=== PATIENT | male | born 1980 | race Caucasian/White ===

== ENCOUNTER 2016-06-10 10:52 | Emergency (ER) | payer SELFPAY ==
[~2016-06-10] VITALS: Ht 180.3 cm; Wt 59.0 kg
[~2016-06-10 10:52] MED LIST: BACTRIM DS 8001 TA1 PO; CLEOCIN HCL300 MG PO; IBUPROFEN200 MG PO; LANTUS INS100 UNITS/ SC; LORTAB 5/500 501 TAB PO; NOMEDS; NOVOLOG FLEX100 U/ML SC; NYSTATIN SUSPEN60 ML PO
[2016-06-10 11:01] VITALS: BP 152/107
[2016-06-10] MEDS ORDERED: LISINOPRIL2.5 MG PO (11:07)
[2016-06-10] MEDS ORDERED: PENICILLIN VK250 MG PO (11:25)
--- NOTE | 2016-06-10 11:25 | Urgent Treatment Center Report ---
History of Present Issue Date/Time Seen by Provider 06/10/16 1109 Visit Reason Pt arrived:Walked Presenting Problem:PT STATES TOOTHACHE TO TOP AND BOTTOM RIGHT SIDE. STATES PAIN HAS BEEN PRESENT FOR SEVERAL DAYS. STATES TAKING IBUPROFEN AND TYLENOL AT 0800. Location if Accident: Onset of symptoms date/time:/ or onset unknown for:MEDICAL HX UNKNOWN Have you (or family members/close friends) recently traveled outside the [place]? N If Yes, where/when: Have you had exposure to infectious disease within the past month? TB? Other? Specify: Patient complaining of dental pain states that he has a tooth broke off on the left upper and thinks it may be infected. State that he is trying to get some insurance so that he can go to the dentist ALLERGIES Coded Allergies: No Known Allergies (06/10/16) Home Medications Reported Medications Insulin Aspart, Recombinant (Novolog Flexpen) 5 UNITS SC Q AC Ibuprofen (Ibuprofen 200MG) 200 MG PO Q6HP Insulin Glargine (Lantus Insulin Vial) 30 UNITS SC QAM LISINOPRIL (Lisinopril) 2.5 MG PO DAILY History Medical History General CAD? No Angina: No [place]: No Hypertension? Yes Hyperlipidemia? No CHF? No DVT? No PE? No COPD? No Asthma? No Anemia? No GERD? No Gastric ulcers? No GI Bleed? No Hernia? No Thyroid Problems? No Hypothyroidism? No CVA? No Seizures? No Diabetes? Yes Insulin Dependent: Yes Insulin Pump: No Home FSBS? Yes Renal Insuffiency? No UTI? No Stones? No GB Disease: No Nephritic Syndrome? No Asplenia? No Hepatitis? No Sickle Cell Disease? No Arthritis? No Migraines? No Cataracts? No Glaucoma? No MRSA? No HIV? No TB? No Anxiety? Yes Depression? No Cancer? No Immunization HX DT/Tetanus 1-4 YRS Flu UNKNOWN Pneumonia REFUSES Surgical Hx Previous Surgery?Y RIGHT EYE Family History Family HX Diabetes Yes CAD Yes Hypertension Yes Hyperlipidemia Yes Cancer Yes TB No Social History Smoking Hx Smoker: Current Every Day Smoker Tobacco: Yes Type Cigarettes Packs/day < 1 Pack Alcohol Alcohol: No Review of Systems All Other Systems Reviewed and Negative Physical Exam Vital Signs Vital Signs Date Time Temp Pulse Resp B/P Pulse O2 O2 Flow FiO2 Ox Delivery Rate 06/10 1101 98.8 89 20 152/107 100 General Appearance normal appearance, no apparent distress Ear, Nose, Throat gingival disease, multiple dental caries, Respiratory Status Yes: trachea midline, chest symmetrical, non tender chest, tender on palpation. No: respiratory distress. Cardiovascular normal exam, no peripheral edema, no gallop, no JVD, no murmur, no rub Neurologic alert, normal exam, no motor/sensory deficits, oriented x 3, abnormal cerebellar tests Medical Decision Making LABS/Meds/Orders Pt receiving controlled substance in ED? No Results/Orders Current Medication Orders Sig/Emma Start time Last Medication Dose Route Stop Time Status Admin Lidocaine HCl 15 ML ONCE ONE 06/10 1130 AC TP 06/10 1131 Orders Procedure Date/time Status [facility] D[facility] 06/10 1117 Active Departure Departure Time of Disposition 1118 Disposition DC Home or Self Care(routine) Clinical Impression Primary Impression: Dental caries associated with enamel hypomineralization Condition STABLE Patient Instructions DI for Dental Pain, DI for Tooth Decay Additional Instructions Follow up with Dentist DAVE Take antibiotics as prescribed Return to [facility] if needed Discharge Counseling Counseled pt/family regarding diagnosis, medications/RX, home care Prescriptions Current Visit Scripts Penicillin V Potassium 250 MG PO Q6 #28 TAB at 1128
--- NOTE | 2016-06-10 11:25 | Urgent Treatment Center Report ---
History of Present Issue Date/Time Seen by Provider 06/10/16 1109 Visit Reason Pt arrived:Walked Presenting Problem:PT STATES TOOTHACHE TO TOP AND BOTTOM RIGHT SIDE. STATES PAIN HAS BEEN PRESENT FOR SEVERAL DAYS. STATES TAKING IBUPROFEN AND TYLENOL AT 0800. Location if Accident: Onset of symptoms date/time:/ or onset unknown for:MEDICAL HX UNKNOWN Have you (or family members/close friends) recently traveled outside the [place]? N If Yes, where/when: Have you had exposure to infectious disease within the past month? TB? Other? Specify: Patient complaining of dental pain states that he has a tooth broke off on the left upper and thinks it may be infected. State that he is trying to get some insurance so that he can go to the dentist ALLERGIES Coded Allergies: No Known Allergies (06/10/16) Home Medications Reported Medications Insulin Aspart, Recombinant (Novolog Flexpen) 5 UNITS SC Q AC Ibuprofen (Ibuprofen 200MG) 200 MG PO Q6HP Insulin Glargine (Lantus Insulin Vial) 30 UNITS SC QAM LISINOPRIL (Lisinopril) 2.5 MG PO DAILY History Medical History General CAD? No Angina: No [place]: No Hypertension? Yes Hyperlipidemia? No CHF? No DVT? No PE? No COPD? No Asthma? No Anemia? No GERD? No Gastric ulcers? No GI Bleed? No Hernia? No Thyroid Problems? No Hypothyroidism? No CVA? No Seizures? No Diabetes? Yes Insulin Dependent: Yes Insulin Pump: No Home FSBS? Yes Renal Insuffiency? No UTI? No Stones? No GB Disease: No Nephritic Syndrome? No Asplenia? No Hepatitis? No Sickle Cell Disease? No Arthritis? No Migraines? No Cataracts? No Glaucoma? No MRSA? No HIV? No TB? No Anxiety? Yes Depression? No Cancer? No Immunization HX DT/Tetanus 1-4 YRS Flu UNKNOWN Pneumonia REFUSES Surgical Hx Previous Surgery?Y RIGHT EYE Family History Family HX Diabetes Yes CAD Yes Hypertension Yes Hyperlipidemia Yes Cancer Yes TB No Social History Smoking Hx Smoker: Current Every Day Smoker Tobacco: Yes Type Cigarettes Packs/day < 1 Pack Alcohol Alcohol: No Review of Systems All Other Systems Reviewed and Negative Physical Exam Vital Signs Vital Signs Date Time Temp Pulse Resp B/P Pulse O2 O2 Flow FiO2 Ox Delivery Rate 06/10 1101 98.8 89 20 152/107 100 General Appearance normal appearance, no apparent distress Ear, Nose, Throat gingival disease, multiple dental caries, Respiratory Status Yes: trachea midline, chest symmetrical, non tender chest, tender on palpation. No: respiratory distress. Cardiovascular normal exam, no peripheral edema, no gallop, no JVD, no murmur, no rub Neurologic alert, normal exam, no motor/sensory deficits, oriented x 3, abnormal cerebellar tests Medical Decision Making LABS/Meds/Orders Pt receiving controlled substance in ED? No Results/Orders Current Medication Orders Sig/Emma Start time Last Medication Dose Route Stop Time Status Admin Lidocaine HCl 15 ML ONCE ONE 06/10 1130 AC TP 06/10 1131 Orders Procedure Date/time Status [facility] 06/10 1117 Active Departure Departure Time of Disposition 1118 Disposition DC Home or Self Care(routine) Clinical Impression Primary Impression: Dental caries associated with enamel hypomineralization Condition STABLE Patient Instructions DI for Dental Pain, DI for Tooth Decay Additional Instructions Follow up with Dentist DAVE Take antibiotics as prescribed Return to [facility] if needed Discharge Counseling Counseled pt/family regarding diagnosis, medications/RX, home care Prescriptions Current Visit Scripts Penicillin V Potassium 250 MG PO Q6 #28 TAB at 1128
== END 2016-06-10 11:53 | disposition home or self-care (01) ==
LOC: UTC 10:52
DX: K02.9 Dental caries, unspecified (principal); I10 Essential (primary) hypertension; Z72.0 Tobacco use; E11.9 Type 2 diabetes mellitus without complications; Z79.4 Long term (current) use of insulin

== ENCOUNTER 2016-12-28 19:00 | Observation (INO) | payer MEDICAID ==
[~2016-12-28] VITALS: Ht 180.3 cm; Wt 65.3 kg
[~2016-12-28 19:00] MED LIST changes: +LISINOPRIL 20MG20 MG PO; +PENICILLIN VK250 MG PO
[2016-12-28 19:04] VITALS: BP 173/102
[2016-12-28 19:38] LABS: HEMOGLOBIN 16.7 g/dL (14.1-18.0); LYMPH % 17.9 % (10-50)
[2016-12-28 20:23] LABS: URINE BILIRUBIN - DIPSTICK NEGATIVE (NEG); URINE BLOOD TRACE-INTACT (NEG)
--- NOTE | 2016-12-28 20:25 | Emergency Room Report ---
History of Present Illness Time Seen by 2004 Presenting Problem in Triage Pt arrived:Walked Presenting Problem:NAUSEATED, DIZZINESS, BLOOD PRESSURE GOING UP AND DOWN. 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 N Clinical Suspician of Infection? N Mental Status: 1 - Regular (Normal Baseline) Sepsis Risk:Possible Sepsis Risk Have you (or family members/close friends) recently traveled outside the [place]? N If Yes, where/when: Have you had exposure to infectious disease within the past month? N TB? Other? Specify: Source patient, RN notes reviewed, family, old records Exam Limitations no limitations Comment pt with not feeling well today with nausea and inc hr with feeling of syncope but no def chest pain- has pos fh of ht disease and uses tob and is iddm - Cardiac Chest Pain Chest pain indicative of cardiac No Timing/Duration this evening Severity moderate ALLERGIES Coded Allergies: No Known Allergies (06/10/16) Home Medications Active Scripts Penicillin V Potassium 250 MG PO Q6 #28 TAB Prov: 06/10/16 Reported Medications Insulin Aspart, Recombinant (Novolog Flexpen) 5 UNITS SC Q AC Ibuprofen (Ibuprofen 200MG) 200 MG PO Q6HP Insulin Glargine (Lantus Insulin Vial) 30 UNITS SC QAM LISINOPRIL (Lisinopril) 2.5 MG PO DAILY History Medical History General CAD? No Angina: No [place]: No Hypertension? Yes Hyperlipidemia? No CHF? No DVT? No PE? No COPD? No Asthma? No Anemia? No GERD? No Gastric ulcers? No GI Bleed? No Hernia? No Thyroid Problems? No Hypothyroidism? No CVA? No Seizures? No Diabetes? Yes Insulin Dependent: Yes Insulin Pump: No Home FSBS? Yes Renal Insuffiency? No End Stage Renal Disease? No UTI? No Stones? No GB Disease: No Nephritic Syndrome? No Asplenia? No Hepatitis? No Sickle Cell Disease? No Arthritis? No Migraines? No Cataracts? No Glaucoma? No MRSA? No HIV? No TB? No Anxiety? Yes Depression? No Cancer? No Immunization Hx DT/Tetanus 1-4 YRS Flu UNKNOWN Pneumonia REFUSES Surgical Hx Previous Surgery?Y RIGHT EYE Family History Family Hx Diabetes Yes CAD Yes Hypertension Yes Hyperlipidemia Yes Cancer Yes TB No Social History Smoking Hx Smoker: Current Some Day Smoker Tobacco: No Type Cigarettes Packs/day < 1 Pack Alcohol Alcohol: No Drugs none Review of Systems All Other Systems Reviewed and Negative Constitutional denies fever Eyes denies drainage ENT denies: ear discharge, epistaxis. Respiratory denies cough, denies shortness of breath, denies wheezing Cardiovascular denies chest pain, denies syncope Gastrointestinal denies abdominal pain, denies diarrhea, denies vomiting Genitourinary denies: dysuria, frequency, hesitancy, hematuria. Musculoskeletal denies back pain, denies joint pain, denies joint swelling, denies neck pain Skin denies rash Psychiatric/Neurological denies headache, denies seizure Physical Exam Vital Signs Vital Signs Date Time Temp Pulse Resp B/P Pulse O2 O2 Flow FiO2 Ox Delivery Rate 12/28 2230 97.5 86 20 130/85 99 12/28 2113 98.5 94 22 130/79 98 12/28 1954 128 145/97 12/28 1954 124 139/90 12/28 1954 116 138/88 12/28 1941 120 22 160/97 98 12/28 1904 98.5 147 20 173/102 98 - WBC >12,000 or <4,000 or 10% bands? 2 or more SIRS Criteria Met? B/P:130/85 MAP:125 Creatinine >2.0? UA output<0.5ml/kg/hr for 2 hrs? Platelet count >100,000? Lactate >2.0mmol/1? INR >1.2 or PTT > than 60 sec? Evidence of Organ Dysfunction? Provider documented clinical suspician of infection? N Sepsis Criteria Count: 2 Sepsis Risk: Possible Sepsis Risk General Appearance no apparent distress Eye Exam - bilateral eye PERRL, bilateral eye EOMI Ear, Nose, Throat normal ENT inspection Neck supple Respiratory Status No: respiratory distress. Lung Sounds bilateral: lungs clear. 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 No Results/Orders Laboratory Tests 12/28/16 2325: POC Glucose 69 L 12/28/16 2215: Troponin I < 0.02 12/28/161999: Opiates Screen NEGATIVE, Urine Methadone Screen NEGATIVE, Barbiturates NEGATIVE, Phencyclidine Screen NEGATIVE, Amphetamines Screen NEGATIVE, Benzodiazepines Screen NEGATIVE, Cocaine Screen NEGATIVE, Marijuana (THC) Screen NEGATIVE, Urine Color YELLOW, Urine Appearance CLEAR, Urine pH 6.0, Ur Specific [place] 1.010, Urine Protein NEGATIVE, Urine Ketones TRACE H, Urine Blood TRACE-INTACT, Urine Nitrate NEGATIVE, Urine Bilirubin NEGATIVE, Urine Urobilinogen 1.0, Ur Leukocyte Esterase NEGATIVE, Urine RBC FEW, Ur Squamous Epith Cells FEW, Urine Glucose 3+ H 12/28/161936: POC Glucose 318 *H 12/28/161929: TSH 1.01, Thyroxine (T4) 7.1 12/28/161929: Creatine Kinase 100, CK-MB (CK-2) Rel Index 1.1, CK and CKMB Interp 1.1, Troponin I < 0.02 12/28/161929: Sodium 136, Potassium 3.9, Chloride 95 L, Carbon Dioxide 28, BUN 17, Creatinine 1.2, Estimated Creat Clear 70, Estimated GFR (MDRD) 68, Glucose 329 H, Calcium 10.0, Total Bilirubin 0.6, AST 6 L, ALT 19, Alkaline Phosphatase 130 H, Total Protein 8.1, Albumin 4.8, Globulin 3.3 H, Albumin/Globulin Ratio 1.5, WBC 11.0 H, RBC 5.29, Hgb 16.7, Hct 46.8, MCV 88.5, RDW 12.5, Plt Count 202, MPV 8.0, Gran % 75.9, Gran # 8.3 H, Lymphocytes % 17.9, Monocytes % 5.0, Eosinophils % 1.0, Basophils % 0.2, Lymphocytes # 2.0, Monocytes # 0.6, Eosinophils # 0.1, Basophils # 0.0, PUBS MCHC 35.7 H, MCH 31.5 H Current Medication Orders Sig/Emma Start time Last Medication Dose Route Stop Time Status Admin Sodium Chloride 1,000 ML .STK-MED ONE 12/28 2150 DC IV Sodium Chloride 1,000 ML .Q1H1M 12/28 2044 DC 12/28 IV 12/28 Sodium Chloride 10 ML PRN PRN 12/28 2044 AC IV 12/30 2043 Sodium Chloride 1,000 ML .STK-MED ONE 12/28 2044 DC IV Metronidazole 500 MG ONCE ONE 12/28 2014 DC 12/28 PO 12/29 2015 2008 Metronidazole 0 .STK-MED ONE 12/28 2002 DC .ROUTE Sodium Chloride 1,000 ML .STK-MED ONE 12/28 1936 DC IV Sodium Chloride 1,000 ML .Q1H1M 12/28 193 DC 12/28 IV 12/28 Sodium Chloride 10 ML PRN PRN 12/28 1929 AC IV 12/30 1915 Sodium Chloride 10 ML PRN PRN 12/28 1914 AC IV 12/29 1914 Orders Procedure Date/time Status Decision to admit 12/28 2352 Active [id number] BY SAME 12/29 2327 Active ELECTROCARDIOGRAM REQUEST 12/28 2324 Active FINGERSTICK BLOOD SUGAR 12/28 2324 Complete TROPONIN I 12/28 2204 Complete THYROID STIMULATING HORMONE 12/28 2114 Complete THYROXINE (T4) 12/28 2114 Complete FINGERSTICK BLOOD SUGAR 12/28 1936 Complete DRUG ABUSE SCREEN (TRIAGE) 12/28 1934 Complete CARDIAC ENZYMES 12/28 1932 Complete ORTHOSTATIC B/P 12/28 1916 Active 12 LEAD EKG-CORBY (INITIAL) 12/29 1915 Active ELECTROCARDIOGRAM REQUEST 12/29 1915 Active IV SALINE LOCK 12/29 1915 Active URINALYSIS/COMPLETE 12/29 1915 Complete CBC WITH AUTO DIFF 12/29 1915 Complete CHEM 12 PROFILE 12/29 1915 Complete CM/EKG CM/EKG 1 Monitor Rhythm Sinus Tachycardia EKG non-spec. ST/[facility] chgs, ST depression CM/EKG 2 Monitor Rhythm Normal Sinus Rhythm EKG non-spec. ST/[facility] chgs, ST depression XRAY/CT/US XRAY/CT/US XRAY chest XR interpretation by reviewed by me Xray Results normal/NAD Departure Departure Time of Disposition 2343 Disposition Still a Patient Clinical Impression Primary Impression: Rapid palpitations Condition STABLE Referrals WAYNE HUMPHRIES (Family) discussed with dr barrientos ED Critical Care Critical Care No at 0018
[2016-12-28 20:28] LABS: AMPHETAMINES/METAMPHETAMINES NEGATIVE ng/mL (<1000)
[2016-12-28 20:30] LABS: URINE SQUAMOUS CELLS FEW #/hpf (OCC)
[2016-12-29] VITALS (26 sets, daily range): BP systolic 100–155; BP diastolic 48–94
[2016-12-29] MEDS ORDERED: GABAPENTIN 600600 MG PO (02:03)
[2016-12-29] MEDS ORDERED: ZOLOFT 50MG TAB50 MG PO (02:05)
[2016-12-29] MEDS ORDERED: METFORMIN500 MG PO (02:06)
[2016-12-29] MEDS ORDERED: XALATAN 0.005%2.5 M1 OP (02:09)
--- NOTE | 2016-12-29 05:16 | RADIOLOGY REPORT PS360 ---
CHEST(2 VIEWS-NOT PORTABLE) HISTORY: CHEST PAIN ORDERING PHYSICIAN: Estrella De La Cruz MD PATIENT AGE: 36 years COMPARISON: None available FINDINGS: The cardiomediastinal silhouette and pulmonary vascularity are within normal limits. The lungs are clear without infiltrates, suspicious nodules, or pleural effusions. No acute bony abnormalities. IMPRESSION: Negative chest, no acute finding
--- NOTE | 2016-12-29 07:28 | PHARMACY CLINIC NOTE ---
Patient Demographics Patient Demographics Admission date: 12/29/16 Date: 12/29/16 Time: 07 Allergies Coded Allergies: No Known Allergies (12/29/16) HEIGHT- FT: 5 IN: 11.00 K.504 VTE General Information Labs: Laboratory Tests 12/28 193 Hematology Hgb (14.1 - 18.0 g/dL) 16.7 Hct (42.0 - 52.0 %) 46.8 Plt Count (142 - 424 K/mm3) 202 Disclaimer The following section includes nursing documentation that has been pulled in for pharmacy review. Patient's VTE score: 0 Patient's VTE Risk: VERY LOW RISK Clinical trial participant? No VTE prophylaxis [id number] VTE prophylaxis ordered? Yes Type of prophylaxis/treatment: IRWIN at 0728
--- NOTE | 2016-12-29 07:59 | CONSULT NOTE ---
Standard Demographics Patient Demo Date of Consultation: 12/29/16 Referring Provider: Leonidas De La Cruz MD Reason for Consultation: Tachycardia PRIMARY DIAGNOSIS: PALPATATIONS Problem list Problem list: 1. DM, insulin dependent, diagnosed about 2002 A. Retinopathy with recent surgery 12/17/2016, opthalmology 2. HTN 3. Tobacco use, for about 20 yrs 4. FH of CAD in mother and her relaltive in their 40's and 50's History of present illness: History of present illness: 36 yo thin WM admitted through the ER for recurrent dizziness and lightheadedness with associated nausea, heartburn and diaphoresis. No appreciable chest pain. BP at home noted to be in the 70's mm hg systolic initially but then elevated with HR that "kept climbing." In ER, found to be in sinus tach in the 140-160's range which responded to IVF. Currently in bed in NAD. Troponins normal x 4. EKG is sinus with prominent voltage noted and anterolateral T wave inversion without previous EKG for comparison. Cardiology consulted for further recommendations. Past Medical History: General: Hypertension Yes CVA No Seizures No TB No COPD No Asthma No Diabetes Yes Insulin Dependent Yes Insulin Pump No Angina No ID No Hyperlipidemia No Urinary No Cancer No Rheumatic H.D. No Ulcers No MRSA No GB Disease No Other N Additional hx NEUROPATHY Past Surgical HX: Previous Surgery?Y RIGHT EYE Allergies Coded Allergies: No Known Allergies (12/29/16) Home medications: Reported Medications Insulin Glargine (Lantus Insulin Vial) 30 UNITS SC QAM LISINOPRIL (Lisinopril) 20 MG PO DAILY Sertraline Hcl (Zoloft 50MG) 25 MG PO QHS Metformin HCL (Metformin) 500 MG PO BID Latanoprost (Xalatan 0.005% Soln,Oph) 1 DROP OP QHS Gabapentin (Gabapentin 600MG) 600 MG PO QHS Current Medications: Current Medications Gabapentin 600 MG QHS PO (UNV) Metformin HCl 500 MG BID PO (CAN) Sertraline HCl 25 MG DAILY PO (UNV) Sodium Chloride 10 ML PRN PRN IV Diagnostic Test (Pha) 1 EACH W/MEALS&HS FS Insulin Human [rDNA origin] SEE ADMIN CRITERIA FOR LOW INTENSITY SS W/MEALS&HS SC Potassium Chloride/Dextrose/Sod Cl 1,000 ML .[id number] IV Potassium Chloride/Dextrose/Sod Cl 1,000 ML .STK-MED ONE IV (DC) Acetaminophen 650 MG Q4HP PRN PO Nicotine 21 MG DAILYP PRN TD Ondansetron HCl 4 MG Q6HP PRN IV Sodium Chloride 1,000 ML .[id number] IV (DC) Sodium Chloride 1,000 ML .STK-MED ONE IV (DC) Sodium Chloride 1,000 ML .Q1H1M IV (DC) Sodium Chloride 10 ML PRN PRN IV Sodium Chloride 1,000 ML .STK-MED ONE IV (DC) Metronidazole 500 MG ONCE ONE PO (DC) Metronidazole 0 .STK-MED ONE .ROUTE (DC) Sodium Chloride 1,000 ML .STK-MED ONE IV (DC) Sodium Chloride 1,000 ML .Q1H1M IV (DC) Sodium Chloride 10 ML PRN PRN IV Sodium Chloride 10 ML PRN PRN IV Immunization HX DT/Tetanus 1-4 YRS AGO Flu UNKNOWN Pneumonia REFUSES TB Test in last year No Family history Family HX Family Hx Insignificant No Diabetes Yes CAD Yes Hypertension Yes Hyperlipidemia Yes Cancer Yes TB No Social Hx: Smoking HX Tobacco No Type Cigarettes Packs/day < 1 PACK Are you/the child exposed to second-hand smoke: No Alcohol Alcohol: No Hx of Drug Use Drug Use? No Patien't marital status is Patient's support system is good Review of systems: Constitutional see HPI, weakness. Respiratory No: no symptoms reported. Cardiovascular palpitations Gastrointestinal/Abdominal nausea Genitourinary No: no symptoms reported. Musculoskeletal No: no symptoms reported. Neurological No: no symptoms reported. Exam: Admission Vital Signs: 1ST Vital Signs Result Date Time Pulse Ox 98 12/28 1904 B/P 173/102 12/28 190 Temp 98.5 12/28 190 Pulse 147 12/28 1904 Resp 20 12/28 1904 O2 Delivery ROOM AIR 12/29 0117 O2 Flow Rate 2 12/29 0120 Last Vital Signs: Vital Signs Result Date Time Pulse Ox 98 12/29 0600 B/P 100/59 12/29 0600 O2 Delivery ROOM AIR 12/29 599 Pulse 71 12/29 06 Resp 12 12/29 06 Temp 98.0 12/29 0400 O2 Flow Rate 2 12/29 0120 Exam General appearance: alert, awake, no acute distress Neck: no carotid bruit, no JVD Cardiovascular: regular rate & rhythm, no murmur Respiratory: clear to auscultation, good air movement ABD: soft, no tenderness Extremities: moves all, no peripheral edema Neuro: alert, intact, oriented Laboratory data: Laboratory Tests 12/29/16 0645: POC Glucose 102 12/29/16 0555: Creatine Kinase 95, CK-MB (CK-2) Rel Index 0.6, CK and CKMB Interp 0.6, Troponin I < 0.02, Triglycerides 56, Cholesterol 153, LDL Cholesterol 74.8, VLDL Cholesterol 11.2, HDL Cholesterol 67.0 H 12/29/16 0323: POC Glucose 71 12/29/16 0300: Creatine Kinase 93, CK-MB (CK-2) Rel Index 0.8, CK and CKMB Interp 0.7, Troponin I < 0.02 12/29/16 0131: POC Glucose 70 12/28/16 2325: POC Glucose 69 L 12/28/16 2215: Troponin I < 0.02 12/28/161999: Opiates Screen NEGATIVE, Urine Methadone Screen NEGATIVE, Barbiturates NEGATIVE, Phencyclidine Screen NEGATIVE, Amphetamines Screen NEGATIVE, Benzodiazepines Screen NEGATIVE, Cocaine Screen NEGATIVE, Marijuana (THC) Screen NEGATIVE, Urine Color YELLOW, Urine Appearance CLEAR, Urine pH 6.0, Ur Specific [place] 1.010, Urine Protein NEGATIVE, Urine Ketones TRACE H, Urine Blood TRACE-INTACT, Urine Nitrate NEGATIVE, Urine Bilirubin NEGATIVE, Urine Urobilinogen 1.0, Ur Leukocyte Esterase NEGATIVE, Urine RBC FEW, Ur Squamous Epith Cells FEW, Urine Glucose 3+ H 12/28/161936: POC Glucose 318 *H 12/28/161929: TSH 1.01, Thyroxine (T4) 7.1 12/28/161929: Creatine Kinase 100, CK-MB (CK-2) Rel Index 1.1, CK and CKMB Interp 1.1, Troponin I < 0.02 12/28/161929: Sodium 136, Potassium 3.9, Chloride 95 L, Carbon Dioxide 28, BUN 17, Creatinine 1.2, Estimated Creat Clear 70, Estimated GFR (MDRD) 68, Glucose 329 H, Calcium 10.0, Total Bilirubin 0.6, AST 6 L, ALT 19, Alkaline Phosphatase 130 H, Total Protein 8.1, Albumin 4.8, Globulin 3.3 H, Albumin/Globulin Ratio 1.5, WBC 11.0 H, RBC 5.29, Hgb 16.7, Hct 46.8, MCV 88.5, RDW 12.5, Plt Count 202, MPV 8.0, Gran % 75.9, Gran # 8.3 H, Lymphocytes % 17.9, Monocytes % 5.0, Eosinophils % 1.0, Basophils % 0.2, Lymphocytes # 2.0, Monocytes # 0.6, Eosinophils # 0.1, Basophils # 0.0, PUBS MCHC 35.7 H, MCH 31.5 H Plan: Assessment: 1. Tacycardia, question etiology 2. 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 HTN 4. Tobacco use 5. Strong FH of CAD in mother 6. 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 Recommendations: With recurrent symptoms suspicious for angina in this IDDM patient with end organ retinopathy, HTN, tobacco use and strong FH of CAD, would recommend proceeding with cardiac cath. It is felt that stress testing would be a waste of time and resources in this patient with ERMA score of 3. at 1320
--- NOTE | 2016-12-29 08:04 | HISTORY AND PHYSICAL REPORT ---
History and Physical (FCA) Date of admission: 12/29/16 Chief complaint: rapid heart rate and nausea History: History of Present Illness: Mr Aguilar is a 36 year old male with a history of DM, HTN, tobacco usage and depression who presented to [facility] ER with main complaint of fluctuating BP and tachycardia which began about 1500. He was also experiencing nausea but did not vomit. He eventually admitted to left sternal chest cramping and pain between his shoulder blades. In the ER he received IVF and Flagyl and then admitted for further evaluation and treatment with cardiology consult. Patient's MD is Dr Jessica Velazquez at [facility] who he first saw about 1 month ago. He has been taking all of his meds about 1 month and began smoking cessation a month ago. he has decreased his smoking from 1 / PPD to about 2-3 cigarettes daily. This AM at time of exam patient denies CP, SOB, and nausea. He is NPO for cardiology and states he is hungry. During the night he had a low BS and was started on IVF. Past Medical History: Medical History: CAD? No Angina: No WV: No Hypertension? Yes Hyperlipidemia? No CHF? No DVT? No PE? No COPD? No Asthma? No Anemia? No GERD? No Gastric ulcers? No GI Bleed? No Hernia? No Thyroid Problems? No Hypothyroidism? No CVA? No Seizures? No Diabetes? Yes Insulin Dependent: Yes Insulin Pump: No Home FSBS? Yes Renal Insuffiency? No UTI? No Stones? No BPH? No GB Disease: No Nephritic Syndrome? No Asplenia? No Hepatitis? No Sickle Cell Disease? No Arthritis? Yes Migraines? No Cataracts? No Glaucoma? No MRSA? No HIV? No TB? No Anxiety? Yes Depression? Yes Cancer? No More? Yes Additional hx: NEUROPATHY; Blind in the right eye Surgical history: Previous Surgery?Y RIGHT EYE Medications: Reported Medications Insulin Glargine (Lantus Insulin Vial) 30 UNITS SC QAM LISINOPRIL (Lisinopril) 20 MG PO DAILY Gabapentin (Gabapentin 600MG) 600 MG PO QHS Sertraline Hcl (Zoloft 50MG) 25 MG PO NIGHT ONLY Metformin HCL (Metformin) 500 MG PO BID Latanoprost (Xalatan 0.005% Soln,Oph) 1 DROP OP NIGHT ONLY Allergies: Coded Allergies: No Known Allergies (12/29/16) Family History: Family history: Postive for: CAD, DM, HTN. Social History: Smoking Hx Tobacco: Yes Smoker: Current Some Day Smoker Type: Cigarettes Packs/day: < 1 Pack Are you exposed to second hand No Alcohol: Alcohol: Yes How much do you drink Less Than One Drink A Day For how long unknown Hx of Drug Use: Drug Use? No Review of Systems: ENT No: ear ache, sore throat. Cardiovascular Positive for: chest pain, palpitations. No: edema. Respiratory Positive for: non-productive. No: shortness of air, hemoptysis, pneumonia, productive cough (sputum), wheezing. GI Positive for: GERD, nausea. No: abdominal pain, constipation, diarrhea, hematemeis, hematochezia, melena, vomitting. (male) No: frequency, hematuria. Neurological Positive for: light headed. No: dizziness, headache, seizure, syncope. Eyes Positive for: vision loss (right eye). Musculoskeletal Positive for: extremity pain (neuropathy), joint pain. Psychiatric Positive for: anxious, depression. Physical Exam: Vital signs: 1ST Vital Signs Result Date Time Pulse Ox 98 12/28 190 B/P 173/102 12/28 1904 Temp 98.5 12/28 190 Pulse 147 12/28 1904 Resp 20 12/28 1904 O2 Delivery ROOM AIR 12/29 0117 O2 Flow Rate 2 12/29 0120 Exam: General appearance: alert, no acute distress, lying in bed and appears comfortable; at bedside; has had ECHO completed Eyes: anicteric Neck: no carotid bruit, full range of motion, lymphadenopathy (absent), thyroid (normal) Cardiovascular: regular rate & rhythm, no murmur, no peripheral edema Lab data: Labs: Laboratory Tests 12/29/16 0645: POC Glucose 102 12/29/16 0555: Creatine Kinase 95, CK-MB (CK-2) Rel Index 0.6, CK and CKMB Interp 0.6, Troponin I < 0.02, Triglycerides 56, Cholesterol 153, LDL Cholesterol 74.8, VLDL Cholesterol 11.2, HDL Cholesterol 67.0 H 12/29/16 0323: POC Glucose 71 12/29/16 0300: Creatine Kinase 93, CK-MB (CK-2) Rel Index 0.8, CK and CKMB Interp 0.7, Troponin I < 0.02 12/29/16 0131: POC Glucose 70 12/28/16 2325: POC Glucose 69 L 12/28/16 2215: Troponin I < 0.02 12/28/161999: Opiates Screen NEGATIVE, Urine Methadone Screen NEGATIVE, Barbiturates NEGATIVE, Phencyclidine Screen NEGATIVE, Amphetamines Screen NEGATIVE, Benzodiazepines Screen NEGATIVE, Cocaine Screen NEGATIVE, Marijuana (THC) Screen NEGATIVE, Urine Color YELLOW, Urine Appearance CLEAR, Urine pH 6.0, Ur Specific Wisdom 1.010, Urine Protein NEGATIVE, Urine Ketones TRACE H, Urine Blood TRACE-INTACT, Urine Nitrate NEGATIVE, Urine Bilirubin NEGATIVE, Urine Urobilinogen 1.0, Ur Leukocyte Esterase NEGATIVE, Urine RBC FEW, Ur Squamous Epith Cells FEW, Urine Glucose 3+ H 12/28/161936: POC Glucose 318 *H 12/28/161929: TSH 1.01, Thyroxine (T4) 7.1 12/28/161929: Creatine Kinase 100, CK-MB (CK-2) Rel Index 1.1, CK and CKMB Interp 1.1, Troponin I < 0.02 12/28/161929: Sodium 136, Potassium 3.9, Chloride 95 L, Carbon Dioxide 28, BUN 17, Creatinine 1.2, Estimated Creat Clear 70, Estimated GFR (MDRD) 68, Glucose 329 H, Calcium 10.0, Total Bilirubin 0.6, AST 6 L, ALT 19, Alkaline Phosphatase 130 H, Total Protein 8.1, Albumin 4.8, Globulin 3.3 H, Albumin/Globulin Ratio 1.5, WBC 11.0 H, RBC 5.29, Hgb 16.7, Hct 46.8, MCV 88.5, RDW 12.5, Plt Count 202, MPV 8.0, Gran % 75.9, Gran # 8.3 H, Lymphocytes % 17.9, Monocytes % 5.0, Eosinophils % 1.0, Basophils % 0.2, Lymphocytes # 2.0, Monocytes # 0.6, Eosinophils # 0.1, Basophils # 0.0, PUBS MCHC 35.7 H, MCH 31.5 H Radiology results: Results: 12/29/16 CXR IMPRESSION: Negative chest, no acute finding Diagnosis(es): 1. Rapid palpitations 2. Chest pain 3. Depression 4. Insulin dependent diabetes mellitus 5. Diabetic peripheral neuropathy Plan: Cardiac workup with cardiology consult. at 0803
--- NOTE | 2016-12-29 14:14 | RADIOLOGY REPORT PS360 ---
CARDIAC CATHETERIZATION DATE OF CATHETERIZATION:12/29/2016 12:36 PM PROCEDURES: 1. Left heart catheterization 2. Left ventriculogram 3. Selective coronary angiogram 4. FFR to the diagonal artery 5. Drug-eluting stent deployment to the proximal mid LAD 6. Drug-eluting stent deployment to the ostial proximal first diagonal artery INDICATION FOR TEST: 1. Coronary artery disease 2. Ischemic response to adenosine 3. Numerous risk factors for coronary artery disease 4. Angina pectoris class IV Informed consent was obtained prior to the procedure. COMPLICATIONS: None ESTIMATED BLOOD LOSS: Less than 10 ml. TECHNIQUE: One percent lidocaine used to anesthetize the right anterior aspect of the wrist. The right radial artery was accessed via the Seldinger technique. A 6 Montenegrin sheath was placed in the right radial artery. 2.5 mg of verapamil, 800 mcg of nitroglycerin and 5000 U Heparin were given through the arterial sheath. A trap catheter was used to perform left heart catheterization left ventriculogram and selective coronary angiography. A large first diagonal artery had significant disease however it was decided to perform FFR prior to revascularizing this bifurcating lesion. An additional 2000 units of heparin was administered intravenously and the initial ACT was 326 seconds. Effient 60 mg was given orally on the table. An Ikari left guide catheter was placed in the ascending aorta and an FFR wire was normalized. The guide catheter was used intubate the left main artery and the wire was placed into the first diagonal artery. Adenosine was infused in the FFR index dropped to 0.77. At this point an additional BMW wire was placed into the LAD. A 2.5 x 15 mm resolute [place] stent was placed in the ostium of the diagonal artery and deployed at 16 thai. Following this a 3.5 x 6 mm balloon was used to perform angioplasty of the proximal LAD to make sure drug-eluting stent couldn't get past the struts hanging out in the LAD from the first diagonal artery. A 3 mm x 26 mm resolute [place] stent was placed in the proximal to mid LAD and deployed at 18 thai. The 3.5 x 6 mm balloon was placed in the proximal LAD and deployed at 20 thai in order to post dilate. A BMW wire was pulled back and placed into the first diagonal artery or a fresh 3 mm x 6 mm compliant balloon was deployed at 18 thai post dilating the ostium of the first diagonal artery. Excellent angiographic results were obtained with ERMA-3 flow down the LAD and the diagonal artery before and after the procedure. ANGIOGRAPHIC RESULTS: 1. The left main artery normal 2. The left anterior descending artery has a proximal concentric 70% stenosis in between the very large first diagonal artery and the first septal documentation nurse. The remaining LAD has mild nonflow limiting disease. The first diagonal artery is a large 3 mm branch and has an ostial 80% stenosis with a proximal 60% stenosis. The first diagonal artery branches supplies a large amount of myocardium and has mild disease distally. The second diagonal artery is a small to medium vessel and has a proximal ostial 50% stenosis 3. The circumflex artery is nondominant yet still supplies a large first obtuse marginal artery which has mild 20-30% stenoses 4. The right coronary artery is a dominant vessel and large caliber and angiographically normal 5. The BROWN ventriculogram reveals normal 65% 6. The left ventricular end-diastolic pressure 10 mmHg IMPRESSION: 1. Severe proximal LAD disease involving a large first diagonal artery in which the first diagonal artery had an ischemic response to adenosine with an FFR index of 0.77 2. Successful stenting of the proximal LAD extending into the mid LAD with bifurcating stent in the large first diagonal artery 3. Normal ejection fraction 4. Normal left ventricular end-diastolic pressure PLAN: 1. Effient and aspirin 2. LDL less than 55 3. Treatment of diabetes 4. Avoidance of tobacco products 5. Very aggressive risk factor modification 6. Cardiac rehabilitation
--- NOTE | 2016-12-29 21:30 | RADIOLOGY REPORT PS360 ---
PROCEDURE: 2-D M-mode and color Doppler study INDICATIONS FOR THE TEST: Chest pain COPD Heart Murmur Tobacco SmokingX Palpitations Fatigue Syncope Edema HypertensionXDiabetes MellitusX Rheumatic Fever SOBXDOE Obesity Hyperlipidemia Family History HD Additional History DIZZINESS PATIENT INFORMATION HEIGHT: 71 WEIGHT:140 GENDER: Male B/P:132/90 2-D/M-MODE INTERPRETATION: 2-D MEASUREMENTS OBSERVED VALUES IN CMS Right Ventricular Dimension (RVDd) 1.3 Interventricular Septum (Thickness)(IVsd) 1.0 Left Ventricular Internal Dimensions(LVIDd) 5.1 Left Ventricular Posterior Wall (Thickness)(LVPWd) 1.0 Aortic Root 4.0 Aortic Cusp Separation 1.5 Left Atrial Dimensions (LAD) 1.7 2D 1. Left atrium is normal size, the left ventricle is normal size, there is no concentric left ventricular hypertrophy, visually estimated ejection fraction of 55% with no obvious regional wall motion abnormality. 2. The right atrium and right ventricle are normal size and contractility. 3. The aortic valve is minimally thickened and fibrosed. 4. The mitral and tricuspid valvular minimally thickened. 5. The pulmonic valve is poorly visualized. 6. No significant pericardial effusion noted. DOPPLER INTERROGATION: Doppler interrogation of the aortic mitral and tricuspid valvular presence of mild mitral and tricuspid regurgitation, tricuspid and jet velocity insufficient for calculation of the right ventricular systolic pressure, diastolic parameters are within normal range. CONCLUSION: 1. Normal left ventricular size, preserved left ventricular systolic function, visually estimated ejection fraction 55% with no obvious regional wall motion abnormality. Diastolic parameters are within normal range. 2. Mild mitral and tricuspid regurgitation. 3. No significant pericardial effusion noted.
[2016-12-30] VITALS (8 sets, daily range): BP systolic 121–155; BP diastolic 65–97
[2016-12-30 05:48] LABS: LYMPH # 1.4 K/mm3 (0.7-4.5); LYMPH % 20.7 % (10-50)
[2016-12-30 05:52] LABS: HEMOGLOBIN 13.8 g/dL (14.1-18.0)
--- NOTE | 2016-12-30 07:32 | ACUTE CARE PROGRESS NOTE (QUA) ---
Progress Notes Subjective Date 12/30/16 Time 0724 Note Ready to go home; Did not sleep well; had a low BS during the night; eating without problems; has been up to the bathroom. Denies CP and SOB; no nausea; placement of 2 cardiac stents yesterday. Objective Findings Laboratory Tests 12/30/16 0601: POC Glucose 331 *H 12/30/16 0530: Sodium 137, Potassium 4.4, Chloride 104, Carbon Dioxide 24, BUN 15, Creatinine 0.7 L, Estimated Creat Clear 132, Estimated GFR (MDRD) 126, Glucose 327 H, Calcium 8.0 L, WBC 6.6, RBC 4.37 L, Hgb 13.8 L, Hct 39.1 L, MCV 89.6, RDW 12.5, Plt Count 122 L, MPV 8.1, Gran % 72.5, Gran # 4.9, Lymphocytes % 20.7, Monocytes % 4.8, Eosinophils % 2.0, Basophils % 0.1, Lymphocytes # 1.4, Monocytes # 0.3, Eosinophils # 0.1, Basophils # 0.0, PUBS MCHC 35.5 H, MCH 31.8 H 12/30/16 0034: POC Glucose 203 H 12/29/16 2339: POC Glucose 54 L 12/29/16 1946: POC Glucose 307 *H 12/29/16 1635: POC Glucose 191 H 12/29/16 1301: POC Activ Clotting Time 356 *H 12/29/16 1234: POC Activ Clotting Time 326 *H Vital Signs Date Time Temp Pulse Resp B/P Pulse O2 O2 Flow FiO2 Ox Delivery Rate 12/30 634 98.3 12/31 623 74 145/93 98 ROOM AIR 12/30 0400 80 13 144/89 99 ROOM AIR 12/30 0400 97.5 80 13 144/89 99 12/30 0200 94 14 140/88 98 ROOM AIR 12/30 0028 99 ROOM AIR 12/30 0000 97.5 86 15 155/90 98 ROOM AIR 12/29 2030 98.4 79 18 155/94 99 ROOM AIR 12/29 2000 98.4 65 18 102/58 94 12/29 1930 98.5 82 16 139/64 99 ROOM AIR 12/29 1834 98.0 85 16 139/89 100 12/29 1830 98.0 85 16 139/89 100 ROOM AIR 09/05 1730 85 16 139/83 99 ROOM AIR 09/05 1630 73 16 132/82 99 ROOM AIR 09/05 1600 67 16 137/87 96 ROOM AIR 09/05 1530 80 16 126/86 99 ROOM AIR 09/05 1520 71 16 108/48 100 OXYGEN 2 09/05 1515 74 16 137/56 100 OXYGEN 2 09/05 1510 68 16 121/74 99 OXYGEN 2 09/05 1505 67 16 102/55 99 ROOM AIR 09/05 1500 82 16 133/82 99 ROOM AIR 09/05 1430 88 16 131/82 100 ROOM AIR 09/05 1415 80 16 141/90 100 ROOM AIR 09/05 1400 86 16 145/90 100 ROOM AIR 09/05 1353 98.0 82 16 128/81 97 ROOM AIR 09/05 1345 98.0 84 16 136/77 99 OXYGEN 09/05 1334 79 16 125/81 98 ROOM AIR 09/05 1334 84 16 135/83 99 ROOM AIR 09/05 1333 82 18 129/84 99 ROOM AIR 09/05 1333 92 16 136/88 98 ROOM AIR 09/05 1330 98.0 80 18 135/83 98 09/05 1237 16 09/05 1235 18 09/05 0900 98.6 82 18 146/88 97 09/05 0800 98.6 82 18 146/88 97 ROOM AIR Current Medications Sodium Chloride 1,000 ML .Q25H IV Aspirin 81 MG DAILY PO (DC) Aspirin 81 MG DAILY PO Prasugrel 10 MG DAILY PO (DC) Prasugrel 10 MG DAILY PO Sertraline HCl 25 MG DAILY PO Insulin Human [rDNA origin] 0 .STK-MED ONE SC (DC) Zolpidem Tartrate 0 .STK-MED ONE PO (DC) Atorvastatin Calcium 40 MG QHS PO (DC) Atorvastatin Calcium 40 MG QHS PO Gabapentin 600 MG QHS PO (DC) Gabapentin 600 MG QHS PO Potassium Chloride/Dextrose/Sod Cl 1,000 ML .[id number] IV Diagnostic Test (Pha) 1 EACH W/MEALS&HS FS Insulin Human [rDNA origin] SEE ADMIN CRITERIA FOR LOW INTENSITY SS W/MEALS&HS SC Insulin Human [rDNA origin] 0 .STK-MED ONE SC (DC) Iopamidol 160 ML ONCE ONE IV (DC) Acetaminophen 650 MG Q4HP PRN PO Fentanyl Citrate 25 MCG PRN PRN IV (DC) Fentanyl Citrate 50 MCG PRN PRN IV (DC) Flumazenil 0.2 MG PRN PRN IV (DC) Heparin Sodium (Beef Lung) 5,000 UNITS PRN PRN IV Heparin Sodium/Sodium Chloride 3,000 UNITS PRN PRN IV Midazolam HCl 1 MG PRN PRN IV (DC) Midazolam HCl 1 MG PRN PRN IV (DC) Naloxone HCl 0.4 MG [id number] PRN IV (DC) Nicotine 21 MG DAILYP PRN TD Nitroglycerin 800 MCG PRN PRN IV Ondansetron HCl 4 MG Q6HP PRN IV Sodium Chloride 10 ML PRN PRN IV (DC) Sodium Chloride 10 ML PRN PRN IV (DC) Sodium Chloride 10 ML PRN PRN IV (DC) Sodium Chloride 10 ML PRN PRN IV Sodium Chloride 10 ML PRN PRN IV Verapamil HCl 5 MG PRN PRN IV Acetaminophen 0 .STK-MED ONE PO (DC) Adenosine 90 MG ONCE ONE IV (DC) Sodium Chloride 60 ML Prasugrel 60 MG ONCE ONE PO (DC) Prasugrel 0 .STK-MED ONE PO (DC) Sodium Chloride 100 ML .STK-MED ONE IV (DC) Adenosine 0 .STK-MED ONE IV (DC) Nitroglycerin 0 .STK-MED ONE IV (DC) Heparin Sodium/Sodium Chloride 1,500 ML .STK-MED ONE IV (DC) Diphenhydramine HCl 0 .STK-MED ONE .ROUTE (DC) Heparin Sodium (Beef Lung) 0 .STK-MED ONE .ROUTE (DC) Lidocaine HCl 0 .STK-MED ONE .ROUTE (DC) Sodium Chloride 1,000 ML .STK-MED ONE IV (DC) Verapamil HCl 0 .STK-MED ONE .ROUTE (DC) Diphenhydramine HCl 50 MG ONCE ONE IV (DC) Metformin HCl 500 MG BID PO (CAN) Sertraline HCl 25 MG DAILY PO (DC) Sodium Chloride 10 ML PRN PRN IV (DC) Sodium Chloride 1,000 ML .Q25H IV Fentanyl Citrate 25 MCG PRN PRN IV (DC) Fentanyl Citrate 50 MCG PRN PRN IV (DC) Flumazenil 0.2 MG PRN PRN IV (DC) Heparin Sodium (Beef Lung) 5,000 UNITS PRN PRN IV (DC) Heparin Sodium/Sodium Chloride 3,000 UNITS PRN PRN IV (DC) Lidocaine HCl 20 ML ONCE ONE IJ (DC) Midazolam HCl 1 MG PRN PRN IV (DC) Midazolam HCl 1 MG PRN PRN IV (DC) Naloxone HCl 0.4 MG [id number] PRN IV (DC) Nitroglycerin 800 MCG PRN PRN IV (DC) Verapamil HCl 5 MG PRN PRN IV (DC) Sodium Chloride 10 ML PRN PRN IV (DC) Diagnostic Test (Pha) 1 EACH W/MEALS&HS FS (DC) Insulin Human [rDNA origin] SEE ADMIN CRITERIA FOR LOW INTENSITY SS W/MEALS&HS SC (DC) Potassium Chloride/Dextrose/Sod Cl 1,000 ML .[id number] IV (DC) Acetaminophen 650 MG Q4HP PRN PO (DC) Nicotine 21 MG DAILYP PRN TD (DC) Ondansetron HCl 4 MG Q6HP PRN IV (DC) Sodium Chloride 10 ML PRN PRN IV (DC) Sodium Chloride 10 ML PRN PRN IV (DC) Sodium Chloride 10 ML PRN PRN IV (DC) 09/ 1500 09/05 2300 09/06 0700 Intake Total 240 906 347 Output Total 350 Balance 240 556 347 Intake, IV 546 347 Intake, Oral 240 360 Output, Urine 350 Patient 144 lb Weight Last VS-Temp:98.3 B/P:145/93 Pulse:74 Resp:13 SaO2:98 ROOM AIR Last weight lbs:144 oz:0 K.317 Method:Floor Scales ECHO 12/29/16 CONCLUSION: 1. Normal left ventricular size, preserved left ventricular systolic function, visually estimated ejection fraction 55% with no obvious regional wall motion abnormality. Diastolic parameters are within normal range. 2. Mild mitral and tricuspid regurgitation. 3. No significant pericardial effusion noted. Cardiac cath 12/29/16 IMPRESSION: 1. Severe proximal LAD disease involving a large first diagonal artery in which the first diagonal artery had an ischemic response to adenosine with an FFR index of 0.77 2. Successful stenting of the proximal LAD extending into the mid LAD with bifurcating stent in the large first diagonal artery 3. Normal ejection fraction 4. Normal left ventricular end-diastolic pressure PLAN: 1. Effient and aspirin 2. LDL less than 55 3. Treatment of diabetes 4. Avoidance of tobacco products 5. Very aggressive risk factor modification 6. Cardiac rehabilitation Exam General appearance: alert, active, no acute distress Cardiovascular: regular rate & rhythm Respiratory: clear to auscultation (bilat anterior and posterior) ABD: soft, no tenderness, bowel sounds present Extremities: no peripheral edema Neuro: alert, oriented Assessment/Plan Problem List 1. Rapid palpitations 2. Chest pain 3. Depression 4. Insulin dependent diabetes mellitus 5. Diabetic peripheral neuropathy 6. CAD (coronary artery disease) 7. Tobacco use 8. Status post coronary artery stent placement Patient condition Improved Plan: Discharge to home as per cardiology; cardiac meds as per cardiology; patient states he has stopped smoking This inpt stay is expected to cross 2 MNs from start of care No at 0732
--- NOTE | 2016-12-30 08:54 | ACUTE CARE PROGRESS NOTE (QUA) ---
Progress Notes Subjective Date 12/30/16 Time 0834 Note 36 yo WM in bed in NAD. No complaints of chest pain. He has chantix at home to help quit smoking. Objective Findings Last VS-Temp:98.6 B/P:153/92 Pulse:87 Resp:14 SaO2:99 ROOM AIR Last weight lbs:144 oz:0 K.317 Method:Floor Scales Exam General appearance: alert, awake, no acute distress Cardiovascular: regular rate & rhythm Respiratory: clear to auscultation Extremities: moves all, no peripheral edema Neuro: alert, intact, oriented Reviewed: medications, vital signs, lab results Assessment/Plan Problem List 1. Rapid palpitations 2. Chest pain 3. Depression 4. Insulin dependent diabetes mellitus 5. Diabetic peripheral neuropathy 6. CAD (coronary artery disease) 7. Tobacco use 8. Status post coronary artery stent placement Patient condition Stable Plan: Ok for discharge home. Follow up in one week. Home on lisinopril 20 mg daily, Atorvastatin 40 mg daily, ASA 81 mg daily and Brilinta 90 mg BID. This inpt stay is expected to cross 2 MNs from start of care No at 0856
[2016-12-30] MEDS ORDERED: BRILINTA90 MG PO (09:37)
[2016-12-30] MEDS ORDERED: ASPIRIN 81MG TA81 MG PO (09:38)
[2016-12-30] MEDS ORDERED: LIPITOR40 M1 PO (09:39)
[2016-12-30] MEDS ORDERED: HABITROL21 MG/24 H TD (09:40)
--- NOTE | 2016-12-31 22:48 | DISCHARGE SUMMARY STANDARD ---
Discharge Summary (FCA2) Date of admission: 12/29/16 Date of discharge: 12/30/16 Problem List: 1. Rapid palpitations 2. Chest pain 3. Depression 4. Insulin dependent diabetes mellitus 5. Diabetic peripheral neuropathy 6. CAD (coronary artery disease) 7. Tobacco use 8. Status post coronary artery stent placement History of present illness: Mr Aguilar is a 36 year old male with a history of DM, HTN, tobacco usage and depression who presented to [facility] ER with main complaint of fluctuating BP and tachycardia. He was also experiencing nausea but did not vomit. He eventually admitted to left sternal chest cramping and pain between his shoulder blades. In the ER he received IVF and was admitted for further evaluation and treatment with cardiology consult. Patient's MD is Dr Jessica Velazquez at [facility] who he first saw about 1 month prior to admission. He had been taking all of his meds for about 1 month and began smoking cessation a month ago. He has decreased his smoking from 1 1/2 PPD to about 2-3 cigarettes daily. Exam on admission: 1ST Vital Signs Result Date Time Pulse Ox 98 12/28 1904 B/P 173/102 12/28 1904 Temp 98.5 12/28 1904 Pulse 147 12/28 1904 Resp 20 12/28 1904 O2 Delivery ROOM AIR 12/29 0117 O2 Flow Rate 2 12/29 0120 Exam: General appearance: alert, no acute distress, lying in bed and appears comfortable; at bedside; has had ECHO completed Eyes: anicteric Neck: no carotid bruit, full range of motion, lymphadenopathy (absent), thyroid (normal) Cardiovascular: regular rate & rhythm, no murmur, no peripheral edema Hospital Course: Troponin I's were normal after admission. He was seen by cardiology who decided to proceed with a cardiac cath due to recurrent symptoms suspicious for angina in an IDDM patient with end organ retinopathy, HTN, tobacco use and strong FH of CAD. Cardiac cath on 12/29/16 revealed severe proximal LAD disease involving a large first diagonal artery in which the first diagonal artery had an ischemic response to adenosine with an FFR index of 0.773; Normal ejection fraction; Normal left ventricular end-diastolic pressure Dr. Madera successfully stented the proximal LAD extending into the mid LAD with bifurcating stent in the large first diagonal artery. PLAN was as follows: 1. Effient and aspirin 2. LDL less than 55 3. Treatment of diabetes 4. Avoidance of tobacco products 5. Very aggressive risk factor modification 6. Cardiac rehabilitation On 12/30/16 patient denied any further CP and SOB. He was ready and stable to go home. Laboratory data this visit: 12/29/16 0645: POC Glucose 102 12/29/16 0555: Creatine Kinase 95, CK-MB (CK-2) Rel Index 0.6, CK and CKMB Interp 0.6, Troponin I < 0.02, Triglycerides 56, Cholesterol 153, LDL Cholesterol 74.8, VLDL Cholesterol 11.2, HDL Cholesterol 67.0 H 12/29/16 0323: POC Glucose 71 12/29/16 0300: Creatine Kinase 93, CK-MB (CK-2) Rel Index 0.8, CK and CKMB Interp 0.7, Troponin I < 0.02 12/29/16 0131: POC Glucose 70 12/28/16 2325: POC Glucose 69 L 12/28/16 2215: Troponin I < 0.02 12/28/161999: Opiates Screen NEGATIVE, Urine Methadone Screen NEGATIVE, Barbiturates NEGATIVE, Phencyclidine Screen NEGATIVE, Amphetamines Screen NEGATIVE, Benzodiazepines Screen NEGATIVE, Cocaine Screen NEGATIVE, Marijuana (THC) Screen NEGATIVE, Urine Color YELLOW, Urine Appearance CLEAR, Urine pH 6.0, Ur Specific [place] 1.010, Urine Protein NEGATIVE, Urine Ketones TRACE H, Urine Blood TRACE-INTACT, Urine Nitrate NEGATIVE, Urine Bilirubin NEGATIVE, Urine Urobilinogen 1.0, Ur Leukocyte Esterase NEGATIVE, Urine RBC FEW, Ur Squamous Epith Cells FEW, Urine Glucose 3+ H 12/28/161936: POC Glucose 318 *H 12/28/161929: TSH 1.01, Thyroxine (T4) 7.1 12/28/161929: Creatine Kinase 100, CK-MB (CK-2) Rel Index 1.1, CK and CKMB Interp 1.1, Troponin I < 0.02 12/28/161929: Sodium 136, Potassium 3.9, Chloride 95 L, Carbon Dioxide 28, BUN 17, Creatinine 1.2, Estimated Creat Clear 70, Estimated GFR (MDRD) 68, Glucose 329 H, Calcium 10.0, Total Bilirubin 0.6, AST 6 L, ALT 19, Alkaline Phosphatase 130 H, Total Protein 8.1, Albumin 4.8, Globulin 3.3 H, Albumin/Globulin Ratio 1.5, WBC 11.0 H, RBC 5.29, Hgb 16.7, Hct 46.8, MCV 88.5, RDW 12.5, Plt Count 202, MPV 8.0, Gran % 75.9, Gran # 8.3 H, Lymphocytes % 17.9, Monocytes % 5.0, Eosinophils % 1.0, Basophils % 0.2, Lymphocytes # 2.0, Monocytes # 0.6, Eosinophils # 0.1, Basophils # 0.0, PUBS MCHC 35.7 H, MCH 31.5 H 12/30/16 0601: POC Glucose 331 *H 12/30/16 0530: Sodium 137, Potassium 4.4, Chloride 104, Carbon Dioxide 24, BUN 15, Creatinine 0.7 L, Estimated Creat Clear 132, Estimated GFR (MDRD) 126, Glucose 327 H, Calcium 8.0 L, WBC 6.6, RBC 4.37 L, Hgb 13.8 L, Hct 39.1 L, MCV 89.6, RDW 12.5, Plt Count 122 L, MPV 8.1, Gran % 72.5, Gran # 4.9, Lymphocytes % 20.7, Monocytes % 4.8, Eosinophils % 2.0, Basophils % 0.1, Lymphocytes # 1.4, Monocytes # 0.3, Eosinophils # 0.1, Basophils # 0.0, PUBS MCHC 35.5 H, MCH 31.8 H 12/30/16 0034: Imagin12/29/16 CXR IMPRESSION: Negative chest, no acute finding 12/29/16 ECHO CONCLUSION: 1. Normal left ventricular size, preserved left ventricular systolic function, visually estimated ejection fraction 55% with no obvious regional wall motion abnormality. Diastolic parameters are within normal range. 2. Mild mitral and tricuspid regurgitation. 3. No significant pericardial effusion noted. Cardiac cath 12/30/16 IMPRESSION: 1. Severe proximal LAD disease involving a large first diagonal artery in which the first diagonal artery had an ischemic response to adenosine with an FFR index of 0.77 2. Successful stenting of the proximal LAD extending into the mid LAD with bifurcating stent in the large first diagonal artery 3. Normal ejection fraction 4. Normal left ventricular end-diastolic pressure PLAN: 1. Effient and aspirin 2. LDL less than 55 3. Treatment of diabetes 4. Avoidance of tobacco products 5. Very aggressive risk factor modification 6. Cardiac rehabilitation Discharge medications: Continue taking these medications: Insulin Glargine (Lantus Insulin Vial) 100 UNIT/ML VIAL 30 UNITS Subcutaneous Injection EVERY MORNING LISINOPRIL (Lisinopril) 20 MG TABLET 20 MILLIGRAM ORAL DAILY Gabapentin (Gabapentin 600MG) 600 MG TABLET 600 MILLIGRAM ORAL AT BEDTIME NIGHTLY Sertraline Hcl (Zoloft 50MG) 50 MG TABLET 25 MILLIGRAM ORAL AT BEDTIME NIGHTLY Metformin HCL (Metformin) 500 MG TABLET 500 MILLIGRAM ORAL TWICE A DAY Latanoprost (Xalatan 0.005% Soln,Oph) 2.5 ML DROPS 1 DROP OPHTHALMIC AT BEDTIME NIGHTLY Instructions: 1 DROP INTO EACH EYE AT BEDTIME Start taking the following new medications: Ticagrelor (Brilinta) 90 MG TABLET 90 MILLIGRAM ORAL TWICE A DAY Qty = 60 Refills = 3 ASPIRIN (Aspirin) 81 MG TAB.CHEW 81 MILLIGRAM ORAL DAILY Qty = 100 Refills = 2 Atorvastatin Calcium (Lipitor 40MG) 40 MG TABLET 40 MILLIGRAM ORAL AT BEDTIME NIGHTLY Qty = 30 Refills = 4 Nicotine (Nicotine Patch) 1 EACH PATCH.TD24 21 MILLIGRAM TRANSDERM DAILY NEEDED as needed for SMOKING CESSATION Qty = 30 Refills = 3 Disposition: Patient was discharged to home in stable and satisfactory condition. Meds as per reconciliation sheet. He was to continue with low fat/cholesterol diet and activity level. FU with cardiology in 1 week. at [id number]
== END 2016-12-30 12:30 | disposition home or self-care (01) ==
LOC: ER 19:00 → ICU 23:58
PROVIDERS: Emergency Medicine; Internal Medicine
PROC: B2111ZZ Fluoroscopy of Multiple Coronary Arteries using Low Osmolar Contrast (ICD-10-PCS; 2016-12-29)
PROC: B2151ZZ Fluoroscopy of Left Heart using Low Osmolar Contrast (ICD-10-PCS; 2016-12-29)
PROC: 4A033BC Measurement of Arterial Pressure, Coronary, Percutaneous Approach (ICD-10-PCS; 2016-12-29)
PROC: 027035Z Dilation of Coronary Artery, One Artery with Two Drug-eluting Intraluminal Devices, Percutaneous Approach (ICD-10-PCS; 2016-12-29)
PROC: 4A023N7 Measurement of Cardiac Sampling and Pressure, Left Heart, Percutaneous Approach (ICD-10-PCS; principal; 2016-12-29 12:15)
DX: I25.119 Atherosclerotic heart disease of native coronary artery with unspecified angina pectoris (principal); Z72.0 Tobacco use; E10.40 Type 1 diabetes mellitus with diabetic neuropathy, unspecified; E10.319 Type 1 diabetes mellitus with unspecified diabetic retinopathy without macular edema; Z79.4 Long term (current) use of insulin
CPT/HCPCS: C1725; C1769; C1876; G0378; J0153; J1644; Q9967

== ENCOUNTER 2017-01-10 16:22 | Observation (INO) | payer MEDICAID ==
[~2017-01-10] VITALS: Ht 180.3 cm; Wt 62.7 kg
[~2017-01-10 16:22] MED LIST changes: +ASPIRIN 81MG TA81 MG PO; +BRILINTA90 MG PO; +GABAPENTIN 600600 MG PO; +HABITROL21 MG/24 H TD; +LIPITOR40 M1 PO; +METFORMIN500 MG PO; +XALATAN 0.005%2.5 M1 OP; +ZOLOFT 50MG TAB50 MG PO
[2017-01-10 16:23] VITALS: BP 151/100
[2017-01-10] MEDS ORDERED: BISOPROLOL 5MG T5 MG PO (16:27)
[2017-01-10 16:40] LABS: LYMPH # 1.6 K/mm3 (0.7-4.5); LYMPH % 19.7 % (10-50)
[2017-01-10 16:41] LABS: HEMOGLOBIN 16.1 g/dL (14.1-18.0)
--- NOTE | 2017-01-10 16:41 | Emergency Room Report ---
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 N Clinical Suspician of Infection? N Mental Status: 1 - Regular (Normal Baseline) Sepsis Risk:Low Sepsis Risk Have you (or family members/close friends) recently traveled outside the [place]? N If Yes, where/when: Have you had exposure to infectious disease within the past month? N TB? Other? Specify: 46 years old white man with diabetes and hypertension. He is status post stenting 2 weeks ago. Is complaining of midsternal chest tightness since yesterday at rest. He feels lightheaded and short of breath. He denies nausea or vomiting. He complained of leg weakness. Source patient, RN notes reviewed, old records Exam Limitations no limitations ALLERGIES Coded Allergies: No Known Allergies (12/29/16) Home Medications Active Scripts Ticagrelor (Brilinta) 90 MG PO BID #60 TAB Ref 3 Prov: 12/30/16 ASPIRIN (Aspirin) 81 MG PO DAILY #100 Ref 2 Prov: 12/30/16 Atorvastatin Calcium (Lipitor 40MG) 40 MG PO QHS #30 TAB Ref 4 Prov: 12/30/16 Reported Medications Insulin Glargine (Lantus Insulin Vial) 30 UNITS SC QAM LISINOPRIL (Lisinopril) 20 MG PO DAILY Sertraline Hcl (Zoloft 50MG) 25 MG PO QHS Metformin HCL (Metformin) 500 MG PO BID Latanoprost (Xalatan 0.005% Soln,Oph) 1 DROP OP QHS BISOPROLOL FUMARATE (Bisoprolol 5MG) 2.5 MG PO DAILY #30 Gabapentin (Gabapentin 600MG) 600 MG PO QHS History Medical History General CAD? No Angina: No [place]: No Hypertension? Yes Hyperlipidemia? No CHF? No DVT? No PE? No COPD? No Asthma? No Anemia? No GERD? No Gastric ulcers? No GI Bleed? No Hernia? No Thyroid Problems? No Hypothyroidism? No CVA? No Seizures? No Diabetes? Yes Insulin Dependent: Yes Insulin Pump: No Home FSBS? Yes Renal Insuffiency? No End Stage Renal Disease? No UTI? No Stones? No BPH? No GB Disease: No Nephritic Syndrome? No Asplenia? No Hepatitis? No Sickle Cell Disease? No Arthritis? Yes Migraines? No Cataracts? No Glaucoma? No MRSA? No HIV? No TB? No Anxiety? Yes Depression? Yes Cancer? No More? Yes Additional hx: NEUROPATHY; Blind in the right eye Immunization Hx DT/Tetanus 1-4 YRS Flu UNKNOWN Pneumonia REFUSES Surgical Hx Previous Surgery?Y RIGHT EYE Family History Family Hx Diabetes Yes CAD Yes Hypertension Yes Hyperlipidemia Yes Cancer Yes TB No Social History Smoking Hx Smoker: Never Smoker Tobacco: No Packs/day < 1 Pack Alcohol Alcohol: Yes Review of Systems All Other Systems Reviewed and Negative Constitutional see HPI, weakness Eyes no symptoms reported ENT no symptoms reported. Respiratory see HPI, shortness of breath Cardiovascular chest pain Gastrointestinal no symptoms reported Genitourinary no symptoms reported. Musculoskeletal no symptoms reported Skin no symptoms reported Psychiatric/Neurological no symptoms reported Physical Exam Vital Signs Vital Signs Date Time Temp Pulse Resp B/P Pulse O2 O2 Flow FiO2 Ox Delivery Rate 01/10 1623 97.9 93 14 151/100 98 - WBC >12,000 or <4,000 or 10% bands? 2 or more SIRS Criteria Met? B/P:151/100 MAP:117 Creatinine >2.0? UA output<0.5ml/kg/hr for 2 hrs? Platelet count >100,000? Lactate >2.0mmol/1? INR >1.2 or PTT > than 60 sec? Evidence of Organ Dysfunction? Provider documented clinical suspician of infection? N Sepsis Criteria Count: 1 Sepsis Risk: Low Sepsis Risk General Appearance normal appearance, WD/WN Eye Exam - bilateral eye normal exam, bilateral eye PERRL, bilateral eye EOMI Ear, Nose, Throat hearing grossly normal, normal ENT inspection Neck normal inspection, non-tender, supple, full range of motion Respiratory Status Yes: trachea midline, chest symmetrical, non tender chest. No: respiratory distress. Lung Sounds bilateral: normal breath sounds, lungs clear. 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 No Results/Orders Laboratory Tests 01/10/17 1625: Sodium 136, Potassium 4.5, Chloride 99, Carbon Dioxide 29, BUN 20 H, Creatinine 1.0, Estimated Creat Clear 91, Estimated GFR (MDRD) 84, Glucose 311 H, Calcium 9.0, Total Bilirubin 1.0, AST 9 L, ALT 26, Alkaline Phosphatase 135 H, Creatine Kinase 77, CK-MB (CK-2) Rel Index 1.2, CK and CKMB Interp 0.9, Troponin I < 0.02, Total Protein 7.7, Albumin 4.7, Globulin 3.0, Albumin/Globulin Ratio 1.6, WBC 7.9, RBC 5.00, Hgb 16.1, Hct 43.8, MCV 87.7, RDW 12.9, Plt Count 226, MPV 7.8, Gran % 72.5, Gran # 5.7, Lymphocytes % 19.7, Monocytes % 6.0, Eosinophils % 1.6, Basophils % 0.2, Lymphocytes # 1.6, Monocytes # 0.5, Eosinophils # 0.1, Basophils # 0.0, PUBS MCHC 36.5 H, MCH 32.0 H 01/10/17 1620: B-Natriuretic Peptide 23, D-Dimer < 100 Current Medication Orders Sig/Emma Start time Last Medication Dose Route Stop Time Status Admin Nitroglycerin 0.5 IN ONCE ONE 01/10 1645 DC 01/10 TD 01/10 1646 1643 Nitroglycerin 0 .STK-MED ONE 01/10 1643 DC .ROUTE Sodium Chloride 10 ML PRN PRN 01/10 1630 AC IV 01/11 1628 Orders Procedure Date/time Status Decision to admit 01/10 1729 Active D-DIMER 01/10 1637 Complete BRAIN NATRIURETIC PEPTIDE 01/10 1637 Complete ELECTROCARDIOGRAM REQUEST 01/10 1629 Active CHEST(2 VIEWS-NOT PORTABLE) 01/10 1629 Active IV SALINE LOCK 01/10 1629 Active CBC WITH AUTO DIFF 01/10 1629 Complete CARDIAC ENZYMES 01/10 1629 Complete CHEM 12 PROFILE 01/10 1629 Complete CM/EKG CM/EKG EKG normal sinus was 96/m T-wave is inverted in V3 and V4 unchanged from December 28 electrocardiogram. XRAY/CT/US XRAY/CT/US XRAY chest, NO ACUTE Departure Departure Time of Disposition 1640 Disposition Still a Patient Clinical Impression Primary Impression: Unstable angina Condition STABLE Referrals WAYNE HUMPHRIES (Family) Additional Instructions tHE PATIENT PAIN WAS BETTER AFTER ntG PASTE i CALLED DR POWERS WHO ADVISED ADMISSION I CALLED DR BALTAZAR WHO ACCETED TO ADMIT HE WAS STABLE DURING HIS ED STAY Discharge Counseling Counseled pt/family regarding diagnosis, test results, medications/RX, follow up needs ED Critical Care Critical Care No If Critical Care minutes are documented, the time involved in the performance of seperately reportable procedures was not counted toward critical care time documented. I directly delivered medical care to this critically ill and/or injured patient. Timely evaluation and treatment was necessary to address the significant organ system(s) dysfunction present in this patient. at 6611
[2017-01-10 17:02] LABS: BUN 20 mg/dL (7-18); GFR (ESTIMATED) 84 ML/MIN (>60)
[2017-01-10 18:00] VITALS: BP 156/90
--- NOTE | 2017-01-10 18:12 | RADIOLOGY REPORT PS360 ---
CHEST(2 VIEWS-NOT PORTABLE) HISTORY: CHEST PAIN Patient Age: 36 years: Male Ordering Physician: Gerard Willis MD TECHNIQUE: PA and lateral COMPARISON :12/29/2016 2 view chest FINDINGS No acute findings. No significant changes prior studies. No focal pneumonia no pneumothorax. No pleural effusion. Heart jacques and mediastinal structures appear satisfactory... Coronary artery stent noted at heart anteriorly. . T-spine ribs intact. IMPRESSION: Stable chest No active disease Negative two-view chest
[2017-01-10] MEDS ORDERED: ROPINIROLE HYDRO1 M1 PO (18:28)
[2017-01-10 19:00] VITALS: BP 132/82
[2017-01-10 20:50] VITALS: BP 132/82
[2017-01-10 23:58] VITALS: BP 127/72
[2017-01-11 04:23] VITALS: BP 117/74
--- NOTE | 2017-01-11 07:19 | PHARMACY CLINIC NOTE ---
Patient Demographics Patient Demographics Admission date: 01/10/17 Date: 01/11/17 Time: 0718 Allergies Coded Allergies: No Known Allergies (12/29/16) HEIGHT- FT: 5 IN: 11.00 K.[id number] VTE General Information Labs: Laboratory Tests 01/10 1625 Hematology Hgb (14.1 - 18.0 g/dL) 16.1 Hct (42.0 - 52.0 %) 43.8 Plt Count (142 - 424 K/mm3) 226 Disclaimer The following section includes nursing documentation that has been pulled in for pharmacy review. Patient's VTE score: 0 Patient's VTE Risk: VERY LOW RISK Clinical trial participant? No VTE prophylaxis [facility] 0371 VTE prophylaxis ordered? Yes Type of prophylaxis/treatment: Lovenox at 0718
--- NOTE | 2017-01-11 07:19 | PHARMACY CLINIC NOTE ---
Patient Demographics Patient Demographics Admission date: 01/10/17 Date: 01/11/17 Time: 0718 Allergies Coded Allergies: No Known Allergies (12/29/16) HEIGHT- FT: 5 IN: 11.00 K.[id number] VTE General Information Labs: Laboratory Tests 01/10 1625 Hematology Hgb (14.1 - 18.0 g/dL) 16.1 Hct (42.0 - 52.0 %) 43.8 Plt Count (142 - 424 K/mm3) 226 Disclaimer The following section includes nursing documentation that has been pulled in for pharmacy review. Patient's VTE score: 0 Patient's VTE Risk: VERY LOW RISK Clinical trial participant? No VTE prophylaxis [facility] 0371 VTE prophylaxis ordered? Yes Type of prophylaxis/treatment: Lovenox at 0718
[2017-01-11 07:45] VITALS: BP 117/74; BP 121/85
[2017-01-11 08:00] VITALS: BP 121/85
--- NOTE | 2017-01-11 08:53 | HISTORY AND PHYSICAL REPORT ---
History and Physical (FCA) Date of admission: 01/10/17 Chief complaint: chest pain History: History of Present Illness: Mr Aguilar is a 36 year old male with a history of IDDM and CAD who presented to the [facility] ER with left anterior CP/soreness. He denies any associated nausea, SOB or radiation. The discomfort started Sat night and continued through Sun. When he took his BP, his machine noted an irregular heat beat and he thus presented to the ER. With evaluation in the ER EKG was noted to be unchanged and that chest pain was better after application of the NTG paste. Dr. Mdaera was called and he advised admission. This AM chest discomfort is a soreness. Patient was discharged from [facility] 2 weeks ago at which time he had 2 stents placed. He had been doing well at home with controlled BS. He had quit smoking as well. Patient did have scheduled FU visits with DR. Madera and his PCP. Past Medical History: Medical History: CAD? Yes Angina: No [place]: No Hypertension? Yes Hyperlipidemia? Yes CHF? No DVT? No PE? No COPD? No Asthma? No Anemia? No GERD? No Gastric ulcers? No GI Bleed? No Hernia? No Thyroid Problems? No Hypothyroidism? No CVA? No Seizures? No Diabetes? Yes Insulin Dependent: Yes Insulin Pump: No Home FSBS? Yes Renal Insuffiency? No UTI? No Stones? No BPH? No GB Disease: No Nephritic Syndrome? No Asplenia? No Hepatitis? No Sickle Cell Disease? No Arthritis? Yes Migraines? No Cataracts? No Glaucoma? No MRSA? No HIV? No TB? No Anxiety? Yes Depression? Yes Cancer? No More? Yes Additional hx: NEUROPATHY; Blind in the right eye Surgical history: Previous Surgery?Y RIGHT EYE ; cardiac cath with stent placement 12/29/16 Medications: Active Scripts Ticagrelor (Brilinta) 90 MG PO BID #60 TAB Ref 3 Prov: 12/30/16 ASPIRIN (Aspirin) 81 MG PO DAILY #100 Ref 2 Prov: 12/30/16 Atorvastatin Calcium (Lipitor 40MG) 40 MG PO QHS #30 TAB Ref 4 Prov: 12/30/16 Reported Medications Insulin Glargine (Lantus Insulin Vial) 30 UNITS SC QAM LISINOPRIL (Lisinopril) 20 MG PO DAILY Sertraline Hcl (Zoloft 50MG) 25 MG PO QHS Metformin HCL (Metformin) 500 MG PO BID Latanoprost (Xalatan 0.005% Soln,Oph) 1 DROP OP QHS ROPINIROLE HCL (Ropinirole Hydrochloride) 1 MG PO BID #60 BISOPROLOL FUMARATE (Bisoprolol 5MG) 2.5 MG PO DAILY #30 Gabapentin (Gabapentin 600MG) 600 MG PO QHS Allergies: Coded Allergies: No Known Allergies (12/29/16) Family History: Family history: Postive for: CAD, DM, HTN. Social History: Smoking Hx Tobacco: No Smoker: Former Smoker Type: Cigarettes Packs/day: N/A Are you exposed to second hand No Alcohol: Alcohol: Yes How much do you drink 2 BEERS DAY For how long 1 YEAR When was your last drink 01/09/17 Hx of Drug Use: Drug Use? No Review of Systems: ENT No: ear ache, mouth pain, sore throat. Cardiovascular Positive for: chest pain. No: edema, palpitations. Respiratory Positive for: shortness of air. No: non-productive, productive cough (sputum). GI No: GERD, abdominal pain, constipation, diarrhea, nausea, vomitting. (female) No: frequency, hematuria. Neurological No: dizziness, headache, seizure, syncope. Musculoskeletal Positive for: extremity pain, joint pain (right shoulder), myalgias (bilateral legs). Physical Exam: Vital signs: 1ST Vital Signs Result Date Time Pulse Ox 98 01/10 1623 B/P 151/100 01/10 1623 Temp 97.9 01/10 1623 Pulse 93 01/10 1623 Resp 14 01/10 1623 O2 Delivery ROOM AIR 01/10 1800 Exam: General appearance: alert, active, no acute distress Eyes: anicteric ENT: mucous membranes moist Cardiovascular: regular rate & rhythm Respiratory: aerating well, clear to auscultation (bilat anterior and posterior), left chest wall tenderness ABD: non-distended, soft, no tenderness, bowel sounds present Extremities: full range of motion, no peripheral edema, no calf tenderness Neuro: alert, oriented Lab data: Labs: Laboratory Tests 01/11/17 0629: POC Glucose 111 H 01/11/17 0435: Troponin I < 0.02 01/10/17 2220: Troponin I < 0.02 01/10/17 2208: POC Glucose 290 H 01/10/17 1625: Sodium 136, Potassium 4.5, Chloride 99, Carbon Dioxide 29, BUN 20 H, Creatinine 1.0, Estimated Creat Clear 91, Estimated GFR (MDRD) 84, Glucose 311 H, Calcium 9.0, Total Bilirubin 1.0, AST 9 L, ALT 26, Alkaline Phosphatase 135 H, Creatine Kinase 77, CK-MB (CK-2) Rel Index 1.2, CK and CKMB Interp 0.9, Troponin I < 0.02, Total Protein 7.7, Albumin 4.7, Globulin 3.0, Albumin/Globulin Ratio 1.6, WBC 7.9, RBC 5.00, Hgb 16.1, Hct 43.8, MCV 87.7, RDW 12.9, Plt Count 226, MPV 7.8, Gran % 72.5, Gran # 5.7, Lymphocytes % 19.7, Monocytes % 6.0, Eosinophils % 1.6, Basophils % 0.2, Lymphocytes # 1.6, Monocytes # 0.5, Eosinophils # 0.1, Basophils # 0.0, PUBS MCHC 36.5 H, MCH 32.0 H 01/10/17 1620: B-Natriuretic Peptide 23, D-Dimer < 100 Radiology results: Results: 01/10/17 CXR IMPRESSION: Stable chest No active disease Negative two-view chest Diagnosis(es): 1. Chest pain 2. CAD (coronary artery disease) 3. IDDM (insulin dependent diabetes mellitus) Plan: await cardiac consult and pt. remains NPO; some home meds restarted (Karen Austin APRN) Diagnosis(es): 1. Chest pain 2. CAD (coronary artery disease) 3. IDDM (insulin dependent diabetes mellitus) Plan: Patient seen and agree with above note. Patient admitted for cardiology, await their recommendations. (Gerard Willis MD) at 0852 at 0912
--- NOTE | 2017-01-11 10:52 | CONSULT NOTE ---
Standard Demographics Patient Demo Date of Consultation: 01/11/17 Referring Provider: Gerard Willis MD Reason for Consultation: Chest pain PRIMARY DIAGNOSIS: CHEST PAIN Problem list Problem list: 1. DM, insulin dependent, diagnosed about 2002 A. Retinopathy with recent surgery 12/17/2016, opthalmology 2. HTN 3. Tobacco use, for about 20 yrs A. Discontinued 12/2016 4. FH of CAD in mother and her relaltive in their 40's and 50's 5. CAD A. 2 drug-eluting stents placed into the left anterior descending and bifurcating into the first diagonal, 12/2016. Normal ejection fraction and LEFT ventricular end-diastolic pressure. 6. Hyperlipidemia History of present illness: History of present illness: 36-year-old white male recently hospitalized with subsequent cardiac catheterization showing extensive left anterior descending and first diagonal disease treated successfully with coronary artery stenting. Patient returned over this past weekend for left-sided chest pain without radiation. Patient describes it as a sharp, stabbing sensation that last anywhere from a second up to 15 minutes. Denies any radiation of symptoms, palpitations, lightheadedness or dizziness. He does note occasional palpitations from time to time. Symptoms woke him from sleep Wednesday night/Wednesday morning but he was able to return to sleep shortly thereafter. Symptoms recurred Wednesday which prompted ER visit and subsequent admission. Troponins have returned normal 3. Electrocardiogram is sinus with anterior T-wave abnormalities unchanged from earlier this month. No acute changes noted. Patient denies any recent exertional symptoms. He states his fingerstick blood sugars at home are between the 100 and 170 consistently. States his blood pressure has been well controlled at home. He was alarmed yesterday when his blood pressure machine was indicating an irregular heartbeat which also prompted his evaluation in the ER. Cardiology consulted for evaluation and recommendations. Patient relates the nitroglycerin paste which was applied in the ER brought about relief of the sharp discomfort, but the chest soreness is still present. This is reproducible with palpation on the chest wall. Past Medical History: General: Hypertension Yes CVA No Seizures No TB No COPD No Asthma No Diabetes Yes Insulin Dependent Yes Insulin Pump No Angina No CA No Hyperlipidemia Yes Urinary No Cancer No Rheumatic H.D. No Ulcers No MRSA No GB Disease No Other N Additional hx NEUROPATHY; Blind in the right eye Past Surgical HX: Previous Surgery?Y RIGHT EYE Allergies Coded Allergies: No Known Allergies (12/29/16) Home medications: Active Scripts Ticagrelor (Brilinta) 90 MG PO BID #60 TAB Ref 3 Prov: 12/30/16 ASPIRIN (Aspirin) 81 MG PO DAILY #100 Ref 2 Prov: 12/30/16 Atorvastatin Calcium (Lipitor 40MG) 40 MG PO QHS #30 TAB Ref 4 Prov: 12/30/16 Reported Medications Insulin Glargine (Lantus Insulin Vial) 30 UNITS SC QAM Metformin HCL (Metformin) 500 MG PO BID Latanoprost (Xalatan 0.005% Soln,Oph) 1 DROP OP QHS LISINOPRIL (Lisinopril) 10 MG PO DAILY Sertraline Hcl (Zoloft 50MG) 100 MG PO QHS BISOPROLOL FUMARATE (Bisoprolol 5MG) 2.5 MG PO DAILY #30 TAB ROPINIROLE HCL (Ropinirole Hydrochloride) 1 MG PO BID #60 Gabapentin (Gabapentin 600MG) 600 MG PO QHS Current Medications: Current Medications Latanoprost 1 DROP QHS OP Sertraline HCl 25 MG QHS PO Insulin Glargine 30 UNITS 1400 SC Bisoprolol Fumarate 2.5 MG DAILY PO Insulin Glargine 30 UNITS QAM SC (DC) Lisinopril 20 MG DAILY PO Ticagrelor 90 MG BID PO Ropinirole HCl 0 .STK-MED ONE .ROUTE (DC) Sodium Chloride 10 ML PRN PRN IV Nitroglycerin 0.5 IN Q6 TP Insulin Human [rDNA origin] 0 .STK-MED ONE SC (DC) Gabapentin 0 .STK-MED ONE .ROUTE (DC) Ropinirole HCl 0 .STK-MED ONE .ROUTE (DC) Diagnostic Test (Pha) 1 EACH W/MEALS&HS FS Gabapentin 600 MG QHS PO Insulin Human [rDNA origin] SEE ADMIN CRITERIA W/MEALS&HS SC Ropinirole HCl 1 MG BID PO Morphine Sulfate 2 MG Q2HP PRN IV Nicotine 21 MG DAILYP PRN TD Enoxaparin Sodium 40 MG DAILY SC Nitroglycerin 0.5 IN ONCE ONE TD (DC) Nitroglycerin 0 .STK-MED ONE .ROUTE (DC) Sodium Chloride 10 ML PRN PRN IV Immunization HX DT/Tetanus 1-4 Years Flu UNKNOWN Pneumonia RECEIVED IN PAST TB Test in last year No Family history Family HX Family Hx Insignificant No Diabetes Yes CAD Yes Hypertension Yes Hyperlipidemia Yes Cancer No TB No Social Hx: Smoking HX Tobacco No Type Cigarettes Packs/day N/A Are you/the child exposed to second-hand smoke: No Alcohol Alcohol: Yes How much do you drink 2 BEERS DAY For how long 1 YEAR When was your last drink 01/09/17 Hx of Drug Use Drug Use? No Review of systems: Constitutional No: no symptoms reported. Respiratory No: no symptoms reported. Cardiovascular see HPI, chest pain Gastrointestinal/Abdominal No no symptoms reported Genitourinary No: no symptoms reported. Musculoskeletal muscle stiffness. Neurological No: no symptoms reported. Exam: Admission Vital Signs: 1ST Vital Signs Result Date Time Pulse Ox 98 01/10 1623 B/P 151/100 01/10 1623 Temp 97.9 01/10 1623 Pulse 93 01/10 1623 Resp 14 01/10 1623 O2 Delivery ROOM AIR 01/10 1800 Last Vital Signs: Vital Signs Result Date Time Pulse Ox 98 01/11 0800 B/P 121/85 01/11 0800 O2 Delivery ROOM AIR 01/11 0800 Temp 97.8 01/11 0800 Pulse 78 01/11 0800 Resp 18 01/11 0800 Exam General appearance: alert, awake, no acute distress Neck: no carotid bruit, no JVD Cardiovascular: regular rate & rhythm, no murmur Respiratory: clear to auscultation, good air movement ABD: soft, no tenderness Extremities: moves all, no peripheral edema Neuro: alert, intact, oriented Laboratory data: Laboratory Tests 01/11/17 0629: POC Glucose 111 H 01/11/17 0435: Troponin I < 0.02 01/10/17 2220: Troponin I < 0.02 01/10/17 2208: POC Glucose 290 H 01/10/17 1625: Sodium 136, Potassium 4.5, Chloride 99, Carbon Dioxide 29, BUN 20 H, Creatinine 1.0, Estimated Creat Clear 91, Estimated GFR (MDRD) 84, Glucose 311 H, Calcium 9.0, Total Bilirubin 1.0, AST 9 L, ALT 26, Alkaline Phosphatase 135 H, Creatine Kinase 77, CK-MB (CK-2) Rel Index 1.2, CK and CKMB Interp 0.9, Troponin I < 0.02, Total Protein 7.7, Albumin 4.7, Globulin 3.0, Albumin/Globulin Ratio 1.6, WBC 7.9, RBC 5.00, Hgb 16.1, Hct 43.8, MCV 87.7, RDW 12.9, Plt Count 226, MPV 7.8, Gran % 72.5, Gran # 5.7, Lymphocytes % 19.7, Monocytes % 6.0, Eosinophils % 1.6, Basophils % 0.2, Lymphocytes # 1.6, Monocytes # 0.5, Eosinophils # 0.1, Basophils # 0.0, PUBS MCHC 36.5 H, MCH 32.0 H 01/10/17 1620: B-Natriuretic Peptide 23, D-Dimer < 100 Plan: Assessment: 1. Chest pain with atypical features. Troponins normal 3, electrocardiogram without acute changes. Recommend proceeding with Lexiscan Myoview today and discharge home if no ischemia noted. 2. Coronary artery disease, status post recent left anterior descending and diagonal artery stenting, on dual antiplatelet therapy. 3. Diabetes mellitus, well controlled per patient's home readings. 4. Hypertension, elevated on admission but currently controlled. 5. Hyperlipidemia with questionable myalgias on statin therapy. Recommend holding for 1 week to see if myalgias improve. Recommendations: Discussed with Dr. Madera. See above. at 1056
[2017-01-11 11:42] VITALS: BP 118/78
--- NOTE | 2017-01-11 15:48 | RADIOLOGY REPORT PS360 ---
[facility] CLINICAL INDICATION: CAD, Recent stents, DM ORDERING PHYSICIAN: Gerard Willis MD PATIENT AGE: 36 years COMPARISON: None DOSE: 10.92 mCi technetium Myoview intravenously at rest followed by 32.2 mCi technetium Myoview following the intravenous ministration of 0.4 mg of Lexiscan. Resting blood pressure is 132/76. Stress blood pressure 127/75. FINDINGS: Ejection fraction is calculated to be 66%. SPECT and polar map images reviewed. No fixed or reversible defects are evident that would indicate infarction or ischemia IMPRESSION: 1. Normal ejection fraction. 2. No evidence of ischemia or infarction
[2017-01-11 17:33] VITALS: BP 118/78
--- NOTE | 2017-01-11 17:41 | DISCHARGE SUMMARY STANDARD ---
Discharge Summary ([facility]) Date of admission: 01/10/17 Date of discharge: 01/11/17 Problem List: 1. Chest pain 2. CAD (coronary artery disease) 3. IDDM (insulin dependent diabetes mellitus) History of present illness: Mr Aguilar is a 36-year-old white male recently hospitalized with subsequent cardiac catheterization showing extensive left anterior descending and first diagonal disease treated successfully with coronary artery stenting. Patient returned over this past weekend for left-sided chest pain without radiation. Patient described it as a sharp, stabbing sensation that lasted anywhere from a second up to 15 minutes. He denied any radiation of symptoms, palpitations, lightheadedness or dizziness. He did note occasional palpitations from time to time. Symptoms awakened him from sleep Wednesday night/Wednesday morning but he was able to return to sleep shortly thereafter. Symptoms recurred Wednesday which prompted ER visit and subsequent admission. Troponins returned normal 3. Electrocardiogram was sinus with anterior T-wave abnormalities unchanged from earlier this month; No acute changes noted. Patient denied any recent exertional symptoms. He stated his fingerstick blood sugars at home were between the 100 and 170 consistently and his blood pressure had been well controlled at home. He was alarmed yesterday when his blood pressure machine was indicating an irregular heartbeat which also prompted his evaluation in the ER. Cardiology was consulted for evaluation and recommendations. Patient related the nitroglycerin paste which was applied in the ER brought about relief of the sharp discomfort, but the chest soreness was still present. This was reproducible with palpation on the chest wall. Exam on admission: 1ST Vital Signs Result Date Time Pulse Ox 98 01/10 1623 B/P 151/100 01/10 1623 Temp 97.9 01/10 1623 Pulse 93 01/10 1623 Resp 14 01/10 1623 O2 Delivery ROOM AIR 01/10 1800 Exam: General appearance: alert, active, no acute distress Eyes: anicteric ENT: mucous membranes moist Cardiovascular: regular rate & rhythm Respiratory: aerating well, clear to auscultation (bilat anterior and posterior), left chest wall tenderness ABD: non-distended, soft, no tenderness, bowel sounds present Extremities: full range of motion, no peripheral edema, no calf tenderness Neuro: alert, oriented Hospital Course: Patient had not further SOB or CP after admission but described soreness in the left chest. He had no noted arrhythmias. He was seen by cardiology. Chest pain was felt to be atypical. Troponins were noted to be normal x3 and EKG showed no acute changes. Cardiolite stress test was negative. Thus he was discharged in the PM of 01/11/17. Laboratory data this visit: 01/11/17 0435: Troponin I < 0.02 01/10/17 2220: Troponin I < 0.02 01/10/17 2208: POC Glucose 290 H 01/10/17 1625: Sodium 136, Potassium 4.5, Chloride 99, Carbon Dioxide 29, BUN 20 H, Creatinine 1.0, Estimated Creat Clear 91, Estimated GFR (MDRD) 84, Glucose 311 H, Calcium 9.0, Total Bilirubin 1.0, AST 9 L, ALT 26, Alkaline Phosphatase 135 H, Creatine Kinase 77, CK-MB (CK-2) Rel Index 1.2, CK and CKMB Interp 0.9, Troponin I < 0.02, Total Protein 7.7, Albumin 4.7, Globulin 3.0, Albumin/Globulin Ratio 1.6, WBC 7.9, RBC 5.00, Hgb 16.1, Hct 43.8, MCV 87.7, RDW 12.9, Plt Count 226, MPV 7.8, Gran % 72.5, Gran # 5.7, Lymphocytes % 19.7, Monocytes % 6.0, Eosinophils % 1.6, Basophils % 0.2, Lymphocytes # 1.6, Monocytes # 0.5, Eosinophils # 0.1, Basophils # 0.0, PUBS MCHC 36.5 H, MCH 32.0 H 01/10/17 1620: B-Natriuretic Peptide 23, D-Dimer < 100 Imagin01/10/17 CXR IMPRESSION: Stable chest No active disease Negative two-view chest 01/11/17 Nuc Spect cardiolite stress FINDINGS: Ejection fraction is calculated to be 66%. SPECT and polar map images reviewed. No fixed or reversible defects are evident that would indicate infarction or ischemia IMPRESSION: 1. Normal ejection fraction. 2. No evidence of ischemia or infarction Discharge medications: Continue taking these medications: Insulin Glargine (Lantus Insulin Vial) 100 UNIT/ML VIAL 30 UNITS Subcutaneous Injection EVERY MORNING LISINOPRIL (Lisinopril) 20 MG TABLET 10 MILLIGRAM ORAL DAILY Gabapentin (Gabapentin 600MG) 600 MG TABLET 600 MILLIGRAM ORAL AT BEDTIME NIGHTLY Sertraline Hcl (Zoloft 50MG) 50 MG TABLET 100 MILLIGRAM ORAL AT BEDTIME NIGHTLY Metformin HCL (Metformin) 500 MG TABLET 500 MILLIGRAM ORAL TWICE A DAY Latanoprost (Xalatan 0.005% Soln,Oph) 2.5 ML DROPS 1 DROP OPHTHALMIC AT BEDTIME NIGHTLY Instructions: 1 DROP INTO EACH EYE AT BEDTIME Ticagrelor (Brilinta) 90 MG TABLET 90 MILLIGRAM ORAL TWICE A DAY Qty = 60 ASPIRIN (Aspirin) 81 MG TAB.CHEW 81 MILLIGRAM ORAL DAILY Qty = 100 Atorvastatin Calcium (Lipitor 40MG) 40 MG TABLET 40 MILLIGRAM ORAL AT BEDTIME NIGHTLY Qty = 30 BISOPROLOL FUMARATE (Bisoprolol 5MG) 5 MG TABLET 2.5 MILLIGRAM ORAL DAILY Qty = 30 Comments: TAKE 1 TABLET BY MOUTH EVERY DAY - SIG Obtained From [facility] ROPINIROLE HCL (Ropinirole Hydrochloride) 1 MG TABLET 1 MILLIGRAM ORAL TWICE A DAY Qty = 60 Comments: TAKE 1 TABLET(S) TWICE A DAY BY ORAL ROUTE FOR 30 DAYS. - SIG Obtained From Rom[facility] Disposition: Discharged to home in stable and satisfactory condition. Meds as per reconciliation sheet. Follow up: 7 DAYS as scheduled with Dr. Madera and with his PCP, Dr. Velazquez, as scheduled Activity: Cont Current activity Diet: Continue same diet Discharge to: HOME Agency needed? N at 2019
== END 2017-01-11 17:35 | disposition home or self-care (01) ==
LOC: ER 16:22 → 2ND 17:32 → ER 17:32 → 2ND 17:49
PROVIDERS: Emergency Medicine
DX: R07.9 Chest pain, unspecified (principal); I10 Essential (primary) hypertension; Z72.0 Tobacco use; Z95.5 Presence of coronary angioplasty implant and graft; E11.40 Type 2 diabetes mellitus with diabetic neuropathy, unspecified; Z79.4 Long term (current) use of insulin; I25.10 Atherosclerotic heart disease of native coronary artery without angina pectoris
CPT/HCPCS: A9502; G0378; J2785

== ENCOUNTER → 2017-01-27 | Outpatient (CLI) | payer MEDICAID ==
[~2017-01-27] MED LIST changes: +BISOPROLOL 5MG T5 MG PO; +ROPINIROLE HYDRO1 M1 PO
== END ==
LOC: RT 09:40
DX: I25.10 Atherosclerotic heart disease of native coronary artery without angina pectoris (principal); R00.0 Tachycardia, unspecified; E78.5 Hyperlipidemia, unspecified; E11.9 Type 2 diabetes mellitus without complications